=== PATIENT | female | born 1960 | race Caucasian/White ===

== ENCOUNTER 2021-02-15 21:09 | Inpatient (IN) | payer OTHER, SELFPAY ==
[~2021-02-15] VITALS: Ht 157.5 cm; Wt 54.7 kg
--- NOTE | 2021-02-16 01:18 | NUR ---
Admission Note Direct admit received [facility] with diagnosis of STROKE . Initial Plan of Care discussed-patient verbalized understanding. Oriented to room, call light, pain management and safety.
[2021-02-16 02:05] VITALS: BP_SYST 156
--- NOTE | 2021-02-16 02:11 | NUR ---
CONSULTATION PAGED/CALLED Reason for Consultation: poss stroke Person Who was Notified: anival Consulting Physician: ce carvajal Nurse General Duty Specialty: Ordering Physician: jamari
--- NOTE | 2021-02-16 02:50 | NUR ---
IV MEDICATION D5NS HUNG UP IV MEDICATION D5NS SETUP TO RUN AT 70CC/ HR PER DR. PADILLA'S ADMITTING ORDERS. MEDICATION NOT SHOWING ON EMAR - UNABLE TO VERIFY ON EMAR AT THIS TIME. Addendum: 02/16/21 at 0639 by Lee Haddad RN AT 05 pharmacy was called - pharmacy states allergy must be entered in before it may be shown on EMAR. Scanned at 0519.
--- NOTE | 2021-02-16 04:00 | NUR ---
ROUNDING NOTES Patient resting in bed - no s/s pain or distress noted. Respirations even and unlabored - head of bed elevated. IV site patent - no s/s redness, infection, or infiltration. Bed locked and in lowest position. Call light within reach - bed alarm on.
[2021-02-16] MEDS ORDERED: OMEP20TA20 PO (04:54)
[2021-02-16] MEDS ORDERED: LOSA100T3 PO (04:54)
[2021-02-16] MEDS: D5NS 1,000 ML IV SCH ×2 (05:19→19:18)
[2021-02-16 07:11] LABS: BASOPHILS % (AUTO) 0.4 % (0.0-2.0); EOSINOPHILS # (AUTO) 0.5 K/uL (0.0-0.4); EOSINOPHILS % (AUTO) 6.1 % (0.0-4.0); HEMATOCRIT 40.3 % (36-48); HEMOGLOBIN 13.5 g/dL (12.0-16.0); LYMPHOCYTES # (AUTO) 3.5 K/uL (1.0-5.5); LYMPHOCYTES % (AUTO) 43.5 % (20.5-51.5); MEAN CORPUSCULAR HEMOGLOBIN 29 pg (27-31); MEAN CORPUSCULAR HGB CONC 34 % (32-36); MEAN CORPUSCULAR VOLUME 87 fL (79.0-98.0); MONOCYTES # (AUTO) 0.7 K/uL (0.0-1.0); MONOCYTES % (AUTO) 8.8 % (1.7-9.3); NEUTROPHILS # (AUTO) 3.3 K/uL (1.8-7.7); NEUTROPHILS % (AUTO) 41.2 % (40.0-70.0); PLATELET COUNT (AUTO) 302 K/uL (130-430); RED BLOOD CELL COUNT(AUTO) 4.63 MIL/uL (4.2-6.2)
[2021-02-16 07:24] LABS: ALBUMIN 3.2 g/dL (3.4-4.8); CALCIUM 8.5 mg/dL (8.4-11.0); CREATININE 0.69 mg/dL (0.55-1.30); POTASSIUM 3.4 mmol/L (3.5-5.1); TOTAL BILIRUBIN 0.2 mg/dL (0.0-1.0)
[2021-02-16] MEDS ORDERED: MUPIROCIN 2% TOPICAL OINTMENT 22 GM NS PRN (07:45)
[2021-02-16] MEDS ORDERED: POTASSIUM CHLORIDE 20 MEQ TAB.PRT.SR PO PRN (07:45)
[2021-02-16] MEDS ORDERED: DOCUSATE SODIUM 100 MG CAPSULE PO PRN (07:45)
[2021-02-16] MEDS ORDERED: ACETAMINOPHEN 325 MG TABLET PO PRN (07:45)
[2021-02-16] MEDS ORDERED: MAGNESIUM SULFATE 50 ML IV PRN (07:45)
[2021-02-16] MEDS ORDERED: ONDANSETRON HCL 4 MG/2 ML VIAL IVP PRN (07:45)
[2021-02-16] MEDS ORDERED: MORPHINE 2 MG/ML INJ. SYRINGE IVP PRN (07:45)
[2021-02-16] MEDS ORDERED: ZOLPIDEM TARTRATE 5 MG TABLET PO PRN (07:45)
[2021-02-16] MEDS ORDERED: LORazepam 2 MG/ML VIAL IVP PRN (07:45)
--- NOTE | 2021-02-16 08:00 | NUR ---
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
[2021-02-16 08:30] VITALS: BP_SYST 160
[2021-02-16] MEDS ORDERED: ASPIRIN 81 MG TABLET(ECOTRIN) PO SCH (09:00)
[2021-02-16] MEDS: CLOPIDOGREL BISULFATE 75 MG TABLET PO SCH (09:57)
[2021-02-16] MEDS: LOSARTAN POTASSIUM 50 MG TABLET (COZAAR) PO SCH (09:57)
[2021-02-16 12:00] VITALS: BP_SYST 155
[2021-02-16 16:00] VITALS: BP_SYST 141
--- NOTE | 2021-02-16 19:15 | NUR ---
OPENING NOTES RECEIVED PATIENT SITTING UP, FAMILY AT BEDSIDE. CALL LIGHT WITHIN REACH, PATIENT DEMONSTRATES PROPER USAGE OF CALL LIGHT, BED ALARM ON, BED AT LOWEST POSITION, BED LOCKED. DISCUSSED PLAN OF CARE WITH PATIENT. FALL, RESPIRATORY, SAFETY, AND ASPIRATION PRECAUTIONS IN PLACE. WILL CONTINUE TO MONITOR.
[2021-02-16 20:00] VITALS: BP_SYST 145
[2021-02-17] VITALS: BP_SYST 145
--- NOTE | 2021-02-17 00:05 | NUR ---
PATIENT RESTING, SELF DANIELLE. NO DISTRESS NOTED. WILL CONTINUE TO MONITOR.
[2021-02-17] MEDS: D5NS 1,000 ML IV SCH ×2 (05:24→20:40)
[2021-02-17 06:46] LABS: BASOPHILS % (AUTO) 0.5 % (0.0-2.0); EOSINOPHILS # (AUTO) 0.4 K/uL (0.0-0.4); EOSINOPHILS % (AUTO) 6.2 % (0.0-4.0); HEMOGLOBIN 14.1 g/dL (12.0-16.0); LYMPHOCYTES % (AUTO) 43.9 % (20.5-51.5); MEAN CORPUSCULAR HEMOGLOBIN 29 pg (27-31); MEAN CORPUSCULAR HGB CONC 34 % (32-36); MEAN CORPUSCULAR VOLUME 88 fL (79.0-98.0); MONOCYTES # (AUTO) 0.7 K/uL (0.0-1.0); NEUTROPHILS # (AUTO) 2.7 K/uL (1.8-7.7); NEUTROPHILS % (AUTO) 39.4 % (40.0-70.0); PLATELET COUNT (AUTO) 326 K/uL (130-430); RED CELL DISTRIBUTION WIDTH 13.8 % (9.0-15.0); WHITE BLOOD COUNT (AUTO) 6.8 K/uL (4.8-10.8)
--- NOTE | 2021-02-17 06:49 | NUR ---
CLOSING NOTES PATIENT RESTING, NO SIGNS OF DISTRESS OR WEAKNESS NOTED THROUGHOUT SHIFT. CALL LIGHT WITHIN REACH, PATIENT DEMONSTRATED PROPER USAGE OF CALL LIGHT, BED ALARM ON, BED AT LOWEST POSITION, BED LOCKED. FALL, RESPIRATORY, SAFETY, AND ASPIRATION PRECAUTIONS IN PLACE THROUGHOUT SHIFT. ALL NEEDS MET THROUGHOUT SHIFT. WILL ENDORSE CARE TO ONCOMING SHIFT.
[2021-02-17 07:52] LABS: CALCIUM 8.6 mg/dL (8.4-11.0); CREATININE 0.67 mg/dL (0.55-1.30); POTASSIUM 3.7 mmol/L (3.5-5.1)
[2021-02-17 07:59] VITALS: BP_SYST 129
--- NOTE | 2021-02-17 08:00 | NUR ---
OPENING NOTES: RECEIVED FROM CASTING CARRIER RN. PATIENT RESTING IN BED. NO SIGNS OF ACUTE DISTRESS NOTED. FALL AND SAFETY PRECAUTION REINFORCED. CALL LIGHT WITHIN REACH.
[2021-02-17] MEDS: CLOPIDOGREL BISULFATE 75 MG TABLET PO SCH (08:20)
[2021-02-17] MEDS: LOSARTAN POTASSIUM 50 MG TABLET (COZAAR) PO SCH (08:21)
[2021-02-17 12:05] VITALS: BP_SYST 123
[2021-02-17 12:38] LABS: THYROID STIMULATING HORMONE 4.68 uIu/mL (0.36-3.74)
[2021-02-17 14:02] LABS: BILIRUBIN,URINE NEGATIVE (NEGATIVE); BLOOD, URINE NEGATIVE (NEGATIVE); CLARITY/URINE CLEAR (CLEAR); COLOR,URINE YELLOW (YELLOW); GLUCOSE,URINE NEGATIVE (NEGATIVE); KETONES,URINE NEGATIVE (NEGATIVE); LEUKOCYTE ESTERASE ,URINE TRACE (NEGATIVE); NITRITE, URINE NEGATIVE (NEGATIVE); PH,URINE 6.5 (5.0-8.0); PROTEIN URINE NEGATIVE (NEGATIVE); UROBILINOGEN,URINE 0.2 (0.2-1.0)
[2021-02-17 14:11] LABS: BARBITURATE, URINE NEGATIVE (NEG <=200); BENZODIAZEPINE, URINE NEGATIVE (NEG <=150); CANNABINOID, URINE NEGATIVE (NEG <=50); COCAINE, URINE NEGATIVE (NEG <=150); METHAMPHETAMINES SCREEN,URINE NEGATIVE (NEG <=500); OPIATE, URINE NEGATIVE (NEG <=100); PHENCYCLIDINE SCREEN,URINE NEGATIVE (NEG <=25); UR TRICYCLIC ANTIDEPRESSANTS NEGATIVE (NEG <=300); URINE AMPHETAMINE NEGATIVE (NEG <=500); URINE METHADONE NEGATIVE (NEG <=200); URINE OXYCODONE SCREEN NEGATIVE (NEG <=100); URINE PROPOXYPHENE SCREEN NEGATIVE (NEG <=300)
[2021-02-17 14:17] LABS: BACTERIA,URINE FEW /HPF (None Seen); RBC,URINE 0-3 /HPF (0-3)
[2021-02-17 16:05] VITALS: BP_SYST 122
--- NOTE | 2021-02-17 18:53 | NUR ---
CLOSING NOTES: PATIENT RESTING IN BED. NO SIGNS OF ACUTE DISTRESS NOTED. FALL AND SAFETY PRECAUTION REINFORCED. CALL LIGHT WITHIN REACH.
[2021-02-17 19:00] VITALS: BP_SYST 132
--- NOTE | 2021-02-17 19:15 | NUR ---
change of shift.pt.presentst quiescent affect;calm,resting viewing tv programming.language barrier extant;gabonese.to attend to the pt;gabonese.pt.presents iv access intact iv fluids infusing.pt.capable to reposition self/ambulate w/out assistance.general status stable.respiuratory status stable;unlabored@room air.call light/telephone w/in access of the pt.
[2021-02-17 20:00] VITALS: BP_SYST 132
--- NOTE | 2021-02-17 20:00 | NUR ---
pt.assessed.v/s assessed values wnl.iv access intact iv fluids infusing.i have changed the iv fluids bag@this hour.i have apprised the pt.that snacks/beverages are available w/in the shift no requests posited@this hour.no c/o pain,nausea.pt.capable to reposition self/ambulated.call light/telephone w/in access of the pt.
--- NOTE | 2021-02-17 21:00 | NUR ---
2100pmedications administered.pt.capable to ingest the po medications w/out difficulty.pt.had requested medication pain/sleep. i have administered morphine:1mg ivp;to assess the efficacy of the pain medication per pain mgx protocol.i have administered ambien:10mg sleep.no additional requests posited@this hour.call light/telephone w/in access of the pt.
--- NOTE | 2021-02-17 21:14 | NUR ---
Paged Dr. Jaeger
--- NOTE | 2021-02-17 22:00 | NUR ---
pt.assessed.pt.presents quiescent affect;resting.no c/o pain,nausea.iv access intact iv fluids infusing.no requests posited@this hour.pt.capable to reposition self.call light/telephone w/in access of the pt.
--- NOTE | 2021-02-18 | NUR ---
pt.assessed.v/s assessed values wnl.no c/o pain,nausea.iv access intact iv fluids infusing.no requests posited@this hour.pt.capable to reposition self.call light/telephone w/in access of the pt.
[2021-02-18 00:37] VITALS: BP_SYST 111
--- NOTE | 2021-02-18 02:00 | NUR ---
pt.assessed.pt.presents quiescent affect;somnolent.per flacc pain mgx pt.absent facial grimaces/body posturing.iv access intact iv fluids infusing.pt.capable to reposition self.call light/telephone w/in access of the pt.
--- NOTE | 2021-02-18 04:00 | NUR ---
pt.assessed.pt.presents quiescent affect;somnolent.iv access intact iv fluids infusing.per flacc pain mgx pt.absent facial grimaces/body posturing.pt.capable to reposition self.call light/telephone w/in access of the pt.
--- NOTE | 2021-02-18 06:12 | NUR ---
pt.assssed.pt.presenrts quiescent affect;calm,resting.no c/o pain,nausea.no requests posited@this hour.pt.capable to reposition self.call light/telephone w/in access of the pt.
[2021-02-18 06:52] LABS: BASOPHILS % (AUTO) 0.6 % (0.0-2.0); EOSINOPHILS # (AUTO) 0.4 K/uL (0.0-0.4); EOSINOPHILS % (AUTO) 4.8 % (0.0-4.0); HEMOGLOBIN 13.6 g/dL (12.0-16.0); LYMPHOCYTES # (AUTO) 2.7 K/uL (1.0-5.5); LYMPHOCYTES % (AUTO) 35.6 % (20.5-51.5); MEAN CORPUSCULAR HEMOGLOBIN 29 pg (27-31); MEAN CORPUSCULAR HGB CONC 33 % (32-36); MEAN CORPUSCULAR VOLUME 87 fL (79.0-98.0); MONOCYTES # (AUTO) 0.7 K/uL (0.0-1.0); MONOCYTES % (AUTO) 9.4 % (1.7-9.3); NEUTROPHILS # (AUTO) 3.7 K/uL (1.8-7.7); NEUTROPHILS % (AUTO) 49.6 % (40.0-70.0); PLATELET COUNT (AUTO) 324 K/uL (130-430); RED BLOOD CELL COUNT(AUTO) 4.69 MIL/uL (4.2-6.2); RED CELL DISTRIBUTION WIDTH 13.8 % (9.0-15.0); WHITE BLOOD COUNT (AUTO) 7.5 K/uL (4.8-10.8)
[2021-02-18 07:31] LABS: CALCIUM 8.3 mg/dL (8.4-11.0); CREATININE 0.77 mg/dL (0.55-1.30); PHOSPHORUS 4.6 mg/dL (2.7-4.5); POTASSIUM 4.2 mmol/L (3.5-5.1)
[2021-02-18] MEDS: CLOPIDOGREL BISULFATE 75 MG TABLET PO SCH (08:10)
[2021-02-18 08:11] VITALS: BP_SYST 145
[2021-02-18] MEDS: LOSARTAN POTASSIUM 50 MG TABLET (COZAAR) PO SCH (08:11)
--- NOTE | 2021-02-18 08:13 | NUR ---
OPENING NOTES PATIENT AAOX 3-4 POLISH SPEAKING. HAS IV ACCESS ON THE RT FOREARM #20 SALINE LOCK. RESPIRATION EVEN AND UNLABORED. HAS LEFT SIDE WEAKNESS. NO S/S OF DISTRESS NOR PAIN NOTED. BED IN LOW POSITION, ALARMED AND LOCKED. CONTINUE TO MONITOR PATIENTS STATUS.
[2021-02-18] MEDS ORDERED: ATORVASTATIN 20 MG TABLET PO ONE (10:30)
--- NOTE | 2021-02-18 11:00 | NUR ---
CHRISTINA RN INSERT AN IV ACCESS ON THE RT FOREARM #20. OLD IV INFILTRATED.
[2021-02-18 11:24] VITALS: BP_SYST 125
--- NOTE | 2021-02-18 11:50 | NUR ---
DR GUERRERO CALLED FOR VERIFY AN ORDER FOR [place] D/C PLANNING AND SPOKE TO JOSE CHARGE NURSE.
[2021-02-18] MEDS ORDERED: CALCIUM ACETATE 667 MG CAP PO ONE (12:15)
[2021-02-18] MEDS: cefTRIAXone 1 GM in D5W 50 ML IV SCH (13:18)
[2021-02-18 15:22] VITALS: BP_SYST 142
--- NOTE | 2021-02-18 16:23 | NUR ---
PATIENT SLEEPING AT THIS TIME. NO COMPLAINED OF WEAKNESS NOTED. NO S/S OF DISTRESS NOR PAIN NOTED.
[2021-02-18] MEDS: CALCIUM ACETATE 667 MG CAP PO SCH (18:44)
[2021-02-18] MEDS: D5NS 1,000 ML IV SCH (18:45)
--- NOTE | 2021-02-18 19:45 | NUR ---
OPENING NOTES RECEIVED FROM DAY RN. PATIENT IN BED WITH RESPIRATIONS EVEN AND UNLABORED ON RA.. NO SIGNS OF ACUTE DISTRESS NOTED. FALL AND SAFETY PRECAUTION REINFORCED. CALL LIGHT WITHIN REACH. RFA 22G IV PATENT AND INTACT RUNNING IVF. NO SIGNS OF INFILTRATION NOTED. WILL CONTINUE TO MONITOR.
[2021-02-18 20:00] VITALS: BP_SYST 143
[2021-02-19] VITALS: BP_SYST 134
--- NOTE | 2021-02-19 03:00 | NUR ---
ROUNDED ON PT PT IN BED SLEEPING. RESPIRATIONS EVEN AND UNLABORED ON RA. NO SIGNS OF DISTRESS NOTED. BED IN LOW AND LOCKED POSITION. CALL LIGHT WITHIN REACH. WILL CONTINUE TO MONITOR.
[2021-02-19] MEDS: D5NS 1,000 ML IV SCH (05:20)
--- NOTE | 2021-02-19 06:34 | NUR ---
CLOSING NOTE PT SLEEPING IN BED. RESPIRATIONS EVEN AND UNLABORED ON RA. NO SIGNS OF DISTRESS NOTED. RIGHT FA IV 22G CLEAN DRY AND INTACT RUNNING IVF. NO SIGNS OF INFILTRATION NOTED. ALL NEEDS MET THROUGHOUT NIGHT. BED IN LOW AND LOCKED POSITION. CALL LIGHT WITHIN REACH. SAFETY PRECAUTIONS IN PLACE. WILL ENDORSE TO DAY RN.
[2021-02-19 06:57] LABS: BASOPHILS % (AUTO) 0.6 % (0.0-2.0); EOSINOPHILS # (AUTO) 0.5 K/uL (0.0-0.4); EOSINOPHILS % (AUTO) 6.6 % (0.0-4.0); HEMATOCRIT 43.1 % (36-48); HEMOGLOBIN 14.4 g/dL (12.0-16.0); LYMPHOCYTES # (AUTO) 2.9 K/uL (1.0-5.5); LYMPHOCYTES % (AUTO) 39.5 % (20.5-51.5); MEAN CORPUSCULAR HEMOGLOBIN 29 pg (27-31); MEAN CORPUSCULAR HGB CONC 33 % (32-36); MEAN CORPUSCULAR VOLUME 87 fL (79.0-98.0); MONOCYTES # (AUTO) 0.7 K/uL (0.0-1.0); MONOCYTES % (AUTO) 9.3 % (1.7-9.3); NEUTROPHILS # (AUTO) 3.2 K/uL (1.8-7.7); PLATELET COUNT (AUTO) 339 K/uL (130-430); RED BLOOD CELL COUNT(AUTO) 4.94 MIL/uL (4.2-6.2); RED CELL DISTRIBUTION WIDTH 13.7 % (9.0-15.0); WHITE BLOOD COUNT (AUTO) 7.3 K/uL (4.8-10.8)
--- NOTE | 2021-02-19 07:15 | NUR ---
opening note received sbar from Night RN, patient in bed respirations even, non labored, bed in low and locked position, call light within reach
[2021-02-19 07:25] LABS: CALCIUM 8.5 mg/dL (8.4-11.0); CREATININE 0.9 mg/dL (0.55-1.30); PHOSPHORUS 4.6 mg/dL (2.7-4.5); POTASSIUM 4.2 mmol/L (3.5-5.1)
[2021-02-19 08:00] VITALS: BP_SYST 143
[2021-02-19] MEDS: CALCIUM ACETATE 667 MG CAP PO SCH (08:32)
[2021-02-19] MEDS: CLOPIDOGREL BISULFATE 75 MG TABLET PO SCH (08:32)
[2021-02-19] MEDS: LOSARTAN POTASSIUM 50 MG TABLET (COZAAR) PO SCH (08:33)
--- NOTE | 2021-02-19 08:43 | NUR ---
[phone] [facility] WITH [facility]WIN.
--- NOTE | 2021-02-19 08:53 | NUR ---
ORDERS SPOKE WITH DR GUERRERO, PATIENT COMPLAINING OF PAIN TO NECK 02/24 AND REQUESTING SOMETHING FOR HEARTBURN, NEW ORDERS RECEIVED
[2021-02-19] MEDS ORDERED: ATORVASTATIN 20 MG TABLET PO SCH (09:00)
[2021-02-19] MEDS ORDERED: HYDROcodone/ACETAMIN 5-325 MG TAB (NORCO/ VICODIN) PO PRN (09:45)
[2021-02-19] MEDS ORDERED: FAMOTIDINE 20 MG TABLET PO ONE (09:45)
--- NOTE | 2021-02-19 10:00 | NUR ---
NURSE NOTE PATIENT IN BED RESPIRATIONS EVEN, NON LABORED, BED IN LOW AND LOCKED POSITION CALL LIGHT WITHIN REACH,
[2021-02-19 11:28] VITALS: BP_SYST 131
--- NOTE | 2021-02-19 12:15 | NUR ---
NURSE NOTE PATIENT IN BED, RESPIRATIONS EVEN, NON LABORED, BED IN LOW AND LOCKED POSITION CALL LIGHT WITHIN REACH, IV INFILTRATED, REMOVED, NO ACTIVE BLEEDING, CATHETER INTACT. PATIENT REFUSES TO HAVE NEW IV INSERTED
--- NOTE | 2021-02-19 12:21 | NUR ---
CM note: confirmed By patient and nice/Jeanette that the pt never had a home health visiting nurse or know " [facility]" as per order. The pt stated she does not a home health service either. Stated she does not need it, she can walk ok. -- KATHIA Smith made aware the pt can go home without HH , but to f/u with PCP and dr. [place] as per dc order.
[2021-02-19] MEDS ORDERED: CLOP75TA32 PO (12:42)
[2021-02-19] MEDS ORDERED: NITR-85 PO (12:42)
[2021-02-19] MEDS ORDERED: LIP20 PO (12:42)
[2021-02-19 12:47] VITALS: BP_SYST 128
[2021-02-19] MEDS: cefTRIAXone 1 GM in D5W 50 ML IV SCH (13:00)
--- NOTE | 2021-02-19 13:28 | NUR ---
NURSE NOTE EDUCATED PATIENT REGARDING THE NEED FOR FOLLOW UP WITH PRIMARY DR IN ONE WEEK AND TO SEE NEUROLOGIST DR LOPES IN ONE WEEK. PHONE NUMBER AND OFFICE ADDRESS FOR DR LOPES PROVIDED TO PATIENT
--- NOTE | 2021-02-19 14:13 | NUR ---
D/C Patient Patient given medication reconciliation form and D/C instructions. Exit Care provided. Patient verbalized understanding. MD discussed with patient the results and treatment provided. Ambulatory with steady gait for discharge to home. Patient in stable condition, ID band removed. Patient educated on pain management. All belongings sent with patient.
== END 2021-02-19 14:13 | disposition home or self-care (01) | DRG 65 ==
LOC: STU 02-16 01:20
PROVIDERS: ADMIT General Practice; ATTEND General Practice
DX: I63.81 Other cerebral infarction due to occlusion or stenosis of small artery (principal); G81.94 Hemiplegia, unspecified affecting left nondominant side; E44.1 Mild protein-calorie malnutrition; N39.0 Urinary tract infection, site not specified; G90.9 Disorder of the autonomic nervous system, unspecified; E87.6 Hypokalemia; Z20.822 Contact with and (suspected) exposure to COVID-19; E03.8 Other specified hypothyroidism; R73.03 Prediabetes; I10 Essential (primary) hypertension; J45.909 Unspecified asthma, uncomplicated; Z88.6 Allergy status to analgesic agent; Z68.22 Body mass index [BMI] 22.0-22.9, adult
CPT/HCPCS: 36415; 70551; 80048; 80053; 80061; 80307; 81000; 83036; 83735; 84100; 84439; 84443; 85025; 87086; G0378; J0696; J2270; J7060